=== PATIENT | male | born 1950 | race Two or more races ===

== ENCOUNTER 2017-03-12 19:48 | Emergency (ER) | payer OTHER ==
[~2017-03-12] VITALS: Ht 175.3 cm; Wt 78.0 kg
[2017-03-12] MEDS ORDERED: NKM (19:55)
[2017-03-12 20:13] VITALS: BP 122/88
[2017-03-12] MEDS ORDERED: Ciprofloxacin 500mg tab ORAL ONE (20:15)
--- NOTE | 2017-03-12 20:36 | Emergency Room Report ---
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 Was reported that the patient received exposure on 03/11/2017 to patient MR#[id number]. 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 He states he was wearing gloves and a mask. The patient denies experiencing any signs or symptoms including nausea, vomiting, fever, chills, headache, dizziness, blurred vision, neck pain or stiffness, rash. The patient denies any known allergies to medication including ciprofloxacin. Allergies: Coded Allergies: No Known Allergies (Unverified , 03/12/17) Patient History Past Medical History: see triage record Pertinent Family History: none Reviewed Nursing Documentation: PMH: Agreed, PSxH: Agreed Nursing Documentation-PMH Past Medical History: No Stated History Review of Systems All Other Systems: negative except mentioned in HPI Physical Exam Vital Signs Date Time Temp Pulse Resp B/P (MAP) Pulse Ox O2 Delivery O2 Flow Rate FiO2 03/12/17 19:55 97.7 69 16 133/76 97 Room Air Sp02 EP Interpretation: reviewed, normal General Appearance: no apparent distress, alert, GCS 15, non-toxic Head: normocephalic, atraumatic Eyes: bilateral eye normal inspection, bilateral eye PERRL ENT: hearing grossly normal, normal pharynx, no angioedema, normal voice Neck: full range of motion, supple, no bony tend, supple/symm/no masses Musculoskeletal: back normal, gait/station normal, normal range of motion, non- tender Neurologic: alert, oriented x3, responsive, motor strength/tone normal, sensory intact, speech normal Psychiatric: judgement/insight normal, memory normal, mood/affect normal, no suicidal/homicidal ideation Skin: normal color, no rash, warm/dry, well hydrated Medical Decision Making PA Attestation Dr. Phillips is my supervising physician. Patient management was discussed with my supervising physician Diagnostic Impression: Primary Impression: Exposure to meningitis ER Course The patient is a 66 yo M presenting after meningitis exposure DDx considered but not limited to: meningitis, migraine VARELA, URI, among others PE: vitals WNL. NAD Head NC/AT PERRL Neck is soft, supple, non tender. The patient is given one dose of cipro 500mg PO in the ED and will be DC'ed with ER precautions Last Vital Signs Date Time Temp Pulse Resp B/P (MAP) Pulse Ox O2 Delivery O2 Flow Rate FiO2 03/12/17 20:13 98.9 80 16 122/88 98 Room Air Status: improved Disposition: HOME, SELF-CARE Condition: Improved Patient Instructions: Droplet Precautions, Bacterial Meningitis Additional Instructions: I discussed my findings with the patient. All questions and concerns have been answered. Treatment and medication compliance have been addressed. I advised the patient that they need to follow up with PMD in 3-5 days. Return to ED if you notice fever, chills, neck pain/stiffness, headache, changes in vision, or if needed for any reason. Patient verbalized understanding of discharge instructions. MUNA BECKETT Mar 12, 2017 20:36
== END 2017-03-12 20:13 | disposition home or self-care (01) ==
LOC: EMR 20:00
DX: Z20.89 Contact with and (suspected) exposure to other communicable diseases (principal)
CPT/HCPCS: 99283